=== PATIENT | female | born 1960 | race Caucasian/White ===

== ENCOUNTER 2017-01-13 08:46 | Emergency (ER) | payer BC ==
[~2017-01-13] VITALS: Ht 162.6 cm; Wt 100.0 kg
[2017-01-13 08:48] VITALS: BP 122/64; PULSE 77; RESP 14; TEMP 98.8; O2SAT 95
--- NOTE | 2017-01-13 09:25 | RADRPT ---
EXAM DATE/TIME: 01/13/2017 09:24 [facility] COMPARISON: No previous studies available for comparison. INDICATIONS : Right medial foot pain after physical therapy. MEDICAL HISTORY : Skin cancer. SURGICAL HISTORY : None. ENCOUNTER: Initial ACUITY: 1 week PAIN SCORE: 7/10 LOCATION: Right medial foot FINDINGS: Three view examination of the right foot demonstrates no soft tissue swelling, dislocation, or fractu re. The tarsal bones appear intact. The interphalangeal and metatarsophalangeal joints are intact. The calcaneus is intact. Bony mineralization is normal. CONCLUSION: Negative exam. Donnell Iglesias MD on January 13, 2017 at 9:23 Board Certified Radiologist. This report was verified electronically.
--- NOTE | 2017-01-13 09:31 | RADRPT ---
EXAM DATE/TIME: 01/13/2017 09:29 [facility] COMPARISON: No previous studies available for comparison. INDICATIONS : Right medial ankle pain after physical therapy. MEDICAL HISTORY : Skin cancer. SURGICAL HISTORY : None. ENCOUNTER: Initial ACUITY: 1 week PAIN SCORE: 7/10 LOCATION: Right medial ankle FINDINGS: Three view exam was performed of the right ankle. The bony structures are in normal alignment. Mild soft tissue prominence overlying the medial malleolus. No evidence of fracture or dislocation. The a nkle mortise is intact. No radiopaque foreign bodies are seen. Bony mineralization is normal. CONCLUSION: 1. No acute fracture or dislocation. Los Gonzales MD on January 13, 2017 at 9:29 Board Certified Radiologist. This report was verified electronically.
--- NOTE | 2017-01-13 09:37 | PD ---
HPI Chief Complaint: Injury Time Seen by Provider: 08:59 Travel History International Travel<30 days: No Contact w/Intl Traveler<30days: No Traveled to known affect area: No History of Present Illness HPI 56-year-old female presents to the emergency Department with complaint of right ankle and foot pain 1 week after doing exercises during physical therapy and getting a sharp shooting pain during the exercise. Denies trauma to the foot or ankle. Reports ankle swelling. Has been ambulatory on the affected extremity. Denies paresthesias, loss of sensation, decreased range of motion, decreased strength to the affected extremity. Pain is to the bottom of the heel of the right foot. Rates the pain 7/10 when at its worse. He describes it as a shooting sensation. History of hip replacement and a she is doing physical therapy. She's been taking tramadol and Tylenol for symptom management. Pain is aggravated with ambulation and palpation. Pain is decreased while at rest. Allergies to codeine. Primary care providers in [place]. Has no other medical complaints. No other modifying factors or associated signs and symptoms. PFSH Past Medical History Cardiovascular Problems: Yes Respiratory: Yes Social History Tobacco Use: No Allergies-Medications (Allergen,Severity, Reaction): Coded Allergies: codeine (Verified Allergy, Unknown, RASH, 01/13/17) Reported Meds & Prescriptions Reported Meds & Active Scripts Active Reported Crestor (Rosuvastatin Calcium) 10 Mg Tab Unknown Dose PO HS Proair Hfa 8.5 GM Inh (Albuterol Sulfate) 90 Mcg/Act Aer 1 Puff INH Q4H PRN 108 mcg/actuation Pepcid (Famotidine) 20 Mg Tab 20 Mg PO DAILY Tramadol (Tramadol HCl) 50 Mg Tab 50 Mg PO Q4H PRN Aspirin 81 Mg Chew 81 Mg CHEW BID Review of Systems Except as stated in HPI: all other systems reviewed are Neg Physical Exam Narrative GENERAL: Well-nourished, well-developed female patient, in no acute distress SKIN: Warm and dry. HEAD: Atraumatic. Normocephalic. EYES: Pupils equal and round. No scleral icterus. No injection or drainage. ENT: Mucosa pink and moist. Airway patent. NECK: Trachea midline. CARDIOVASCULAR: Regular rate. RESPIRATORY: No accessory muscle use. GASTROINTESTINAL: Obese. MUSCULOSKELETAL: Right ankle with minimal edema and without tenderness on palpation; without erythema or ecchymosis; no obvious deformity; full range of motion. Right foot without erythema, edema, ecchymosis; tenderness on palpation to the bottom of the heel; no obvious deformity; sensory intact.. Right Lower extremity is supple and nontense with 2+ pedal pulse and sensory intact. No obvious deformities. No clubbing. No cyanosis. No edema. NEUROLOGICAL: Awake and alert. Oriented 3. No obvious cranial nerve deficits. Motor grossly within normal limits. Normal speech. PSYCHIATRIC: Appropriate mood and affect; insight and judgment normal. Data Data Last Documented VS Vital Signs Date Time Temp Pulse Resp B/P (MAP) Pulse Ox O2 Delivery O2 Flow Rate FiO2 01/13/17 08:48 98.8 77 14 122/64 (83) 95 Orders Orders Ankle, Complete ([id number]) (01/13/17 08:57) Foot, Complete ([id number]) (01/13/17 08:57) Ed Discharge Order (01/13/17 09:39) MDM Medical Decision Making Medical Screen Exam Complete: Yes Emergency Medical Condition: Yes Medical Record Reviewed: Yes Differential Diagnosis Stress fracture, heel spur, arthritis, plantar fasciitis, tendinitis, osteomyelitis Narrative Course 56-year-old female with right ankle and foot pain. No traumatic injury. I offered the patient a pain medication and she declined. Right foot and ankle x- ray ordered. 0938: Right foot and ankle x-ray concludes: Last 24 hours Impressions Foot X-Ray 01/13/17856 Signed Impressions: Service Date/Time: Friday, January 13, 2017 09:24 - CONCLUSION: Negative exam. Donnell Iglesias MD Ankle X-Ray 01/13/17856 Signed Impressions: Service Date/Time: Friday, January 13, 2017 09:29 - CONCLUSION: 1. No acute fracture or dislocation. Los Gonzales MD X-ray reports provided to the patient. Patient has walker for support. Ankle stirrup splint provider for support. Patient has pain medication at home. Instructed patient to follow up with podiatry. Instructed patient to follow up with primary care provider. Patient verbalizes understanding and agreement with treatment plan. Patient is medically cleared and stable for discharge. Discussed reasons to return to the emergency department. Patient agrees with treatment plan. The patients vital signs are stable and the patient is stable for outpatient follow-up and treatment. Patient discharged home, stable and in no acute distress. Diagnosis Primary Impression: Right foot pain Additional Impression: Ankle pain, right Qualified Codes: M25.571 - Pain in right ankle and joints of right foot Referrals: [facility] Primary Care Physician Patient Instructions: Ankle Sprain (ED), Foot Sprain (ED), General Instructions Additional Instructions: Tylenol or ibuprofen as directed and as needed for pain and inflammation Rest, ice, compress, and elevate extremity to decrease pain and inflammation Ankle Brace for support Walker, cane for support Avoid aggravating activity; increase activity as tolerated Follow-up with primary care provider Return to the emergency department immediately with worsening of symptoms Med/Other Pt SpecificInfo: No Change to Meds, No Meds Exist/No RX given Disposition: 01 DISCHARGE HOME Condition: Stable Calista Shipman Jan 13, 2017 09:37
[2017-01-13] MEDS ORDERED: TRAM50TA PO (09:42)
[2017-01-13] MEDS ORDERED: ROSU10 PO (09:42)
[2017-01-13] MEDS ORDERED: FAMO1TAB37 PO (09:42)
[2017-01-13] MEDS ORDERED: ALBUAER3 INH (09:42)
[2017-01-13] MEDS ORDERED: ASPI-516 CHEW (09:42)
== END 2017-01-13 10:02 | disposition home or self-care (01) ==
LOC: NEPK 08:46
DX: M25.571 Pain in right ankle and joints of right foot (principal); M79.671 Pain in right foot; Z79.899 Other long term (current) drug therapy; Z88.5 Allergy status to narcotic agent
CPT/HCPCS: 73610; 73630; 99283; L1906